=== PATIENT | male | born 1960 | race Hispanic/Latino ===

== ENCOUNTER 2019-04-13 20:31 | Emergency (ER) | payer OTHER ==
[2019-04-13] MEDS ORDERED: BOOSTRIX IM ONE ×2 (20:37→23:05)
--- NOTE | 2019-04-13 20:39 | Event Note ---
ED Screening Note Date of service: 04/13/19 Time: 20:36 ED Screening Note: This is a 59 y.o. M. that presents to the ER with laceration to right 2nd distal phalanx. Tetanus not UTD This initial assessment/diagnostic orders/clinical plan/treatment(s) is/are subject to change based on patients health status, clinical progression and re- assessment by fellow clinical providers in the ED. Further treatment and workup at subsequent clinical providers discretion. Patient/guardian urged not to elope from the ED as their condition may be serious if not clinically assessed and managed. Initial orders include: XR right fingers Tetanus
--- NOTE | 2019-04-13 21:11 | XRay Report ---
Right index finger 3 views INDICATION: Laceration right index finger. COMPARISON: None available. FINDINGS: There is mild soft tissue swelling in the right index finger without radiopaque foreign body or soft tissue gas. There is no appreciable acute fracture or subluxation. There is mild DJD in the second MCP joint and second CMC joint. Signer Name: Gustavo Morse MD Signed: 04/13/2019 9:07 PM Workstation Name: [id number]
[2019-04-13] MEDS ORDERED: NACL 0.9% 500 ML IR ONE (23:04)
[2019-04-13] MEDS ORDERED: NORCO 5/325 PO ONE (23:12)
[2019-04-13] MEDS ORDERED: NACL 0.9% IR ONE (23:12)
[2019-04-13] MEDS ORDERED: ANCEF IM ONE (23:12)
[2019-04-13] MEDS ORDERED: XYLOCAINE 1% 20 mL INFILTRATI ONE (23:12)
--- NOTE | 2019-04-13 23:14 | Emergency Department Report ---
ED Laceration HPI - HPI Chief Complaint: Wound/Laceration Stated Complaint: LAC 1ST FINGER RT HAND Time Seen by Provider: 04/13/19 20:35 Location: Upper Extremity Severity: moderate Tetanus Status: Not up to Date Laceration Symptoms: Yes Pain, No Foreign Body Sensation, No Numbness, No Weakness Other History: LAC TO R INDEX FINGER. BLEEDING CONTROLLED. NEEDS TDAP. WAS WORKING WHEN FREDDIE WHEN HE CUT HIMSELF. NO OTHER INJURY ED Review of Systems ROS: Stated complaint: LAC 1ST FINGER RT HAND Other details as noted in HPI Comment: All other systems reviewed and negative ED Past Medical Hx - Past Medical History Previous Medical History?: No - Surgical History Past Surgical History?: Yes Hx Cholecystectomy: Yes Additional Surgical History: right hip replacement, tonsils removed - Family History Family history: no significant - Social History Smoking Status: Never Smoker - Medications Home Medications: Home Medications Medication Instructions Recorded Confirmed Last Taken Type cephALEXin [Keflex] 500 mg PO Q12HR #20 cap 04/14/19 Unknown Rx Laceration Physical Exam - Exam General: Vital signs noted. No distress. Alert and acting appropriately. tissue contused and macerated nail bed not involved no subungal not clean lac avulsion type wound neurovasc intact with full ROM Laceration Location: Upper Extremity Laceration Exam: Yes Normal Distal CMS, No Foreign Body, No Exposed Tendon, Vessel, or Nerve, No Tendon Injury ED Course Vital Signs 04/13/19 20:38 Temperature 97.8 F Pulse Rate 108 H Respiratory 18 Rate Blood Pressure 140/93 O2 Sat by Pulse 97 Oximetry - Laceration /Wound Repair finger Wound Location: upper extremity Irrigated w/ Saline (ccs): 100 Betadine Prep?: Yes Anesthesia: 1% Lidocaine Volume Anesthetic (ccs): 2 Wound Debrided: minimal Wound Repaired With: sutures Suture Size/Type: 3:0 Number of Sutures: 3 Layer Closure?: No Sterile Dressing Applied?: Yes Progress: tolerated well local infiltration and digital block for anesthesia wound care provided - Nerve Block Consent Obtained: verbal consent Time Out Performed: Yes Local Anesthetic Used: Lidocaine 1% Amount of anesthesia used: 4 Side: right Nerve Blocks: digital Procedure Successful: Yes Complications: none Patient Tolerated Procedure: well ED Medical Decision Making - Radiology Data Radiology results: report reviewed, image reviewed - Medical Decision Making tdap given ancef given medicated for pain xray no fracture wound cleaned wound repaired and dressed neurovasc intact before and after wound care. pt given wound care instructions. Pt dc home with dc plan of care and follow up for suture removal.. Vital Signs 04/13/19 20:38 Temperature 97.8 F Pulse Rate 108 H Respiratory 18 Rate Blood Pressure 140/93 O2 Sat by Pulse 97 Oximetry - Differential Diagnosis ro open fx Critical care attestation.: If time is entered above; I have spent that time in minutes in the direct care of this critically ill patient, excluding procedure time. ED Disposition Clinical Impression: Laceration Disposition: DC-01 TO HOME OR SELFCARE Is pt being admited?: No Does the pt Need Aspirin: No Condition: Stable Instructions: Suture Care (ED), Laceration (ED) Additional Instructions: wound care as instructed meds as ordered ice/rest/elevate return for suture removal in 7 days as instructed Prescriptions: cephALEXin [Keflex] 500 mg PO Q12HR #20 cap Referrals: DEANDRE MENDOZA MD [Staff Physician] - 3-5 Days Time of Disposition: 00:29
[2019-04-14 01:50] VITALS: BP 132/78
== END 2019-04-14 01:03 | disposition home or self-care (01) ==
LOC: ED 20:31
DX: S61.210A Laceration without foreign body of right index finger without damage to nail, initial encounter (principal); Z90.49 Acquired absence of other specified parts of digestive tract; Z98.890 Other specified postprocedural states; Z96.641 Presence of right artificial hip joint; Z79.899 Other long term (current) drug therapy; Z88.1 Allergy status to other antibiotic agents; Z88.0 Allergy status to penicillin; W45.8XXA Other foreign body or object entering through skin, initial encounter; Y93.89 Activity, other specified; Y92.89 Other specified places as the place of occurrence of the external cause; Y99.0 Civilian activity done for income or pay
CPT/HCPCS: 12001; 73140; 90471; 90715; 96372; 99283; J0690